=== PATIENT | female | born 1995 | race American Indian/Alaskan Native ===

== ENCOUNTER 2019-02-08 19:39 | Emergency (ER) | payer OTHER ==
--- NOTE | 2019-02-08 20:20 | Emergency Department Report ---
Chief Complaint: Medical Clearance Stated Complaint: REPEAT BETA QUANT CHECK Time Seen by Provider: 02/08/19 20:16 - HPI History of Present Illness: This is a 23 y.o. female that presents to the ER for repeat hCG to r/o miscarriage. Patient seen in this ER 02/05/19. Admits to vaginal cramping and vaginal discharge. Denies abdominal pain or vaginal bleeding. - Exam Vital Signs: Vital Signs 02/08/19 19:57 Temperature 98.8 F Pulse Rate 82 Respiratory 16 Rate Blood Pressure 136/76 [Right] O2 Sat by Pulse 100 Oximetry MSE screening note: Focused history and physical exam performed. Due to findings the following was ordered: labs ED Disposition for MSE Condition: Stable
--- NOTE | 2019-02-08 22:42 | Emergency Department Report ---
ED Female HPI - General Chief complaint: Urogenital-Female Stated complaint: REPEAT BETA QUANT CHECK Time Seen by Provider: 02/08/19 20:16 Source: patient Mode of arrival: Ambulatory Limitations: No Limitations - History of Present Illness Initial comments: 23-year-old -[place] female comes to the emergency room for repeat hCG on a taper. Patient was seen here on 02/05/2019 and was diagnosed with a threatened miscarriage. Patient at that time came in with pelvic cramping and vaginal spotting. Patient had an ultrasound that showed a single intrauterine gestation with pole was not appreciated. Her hCG at that time was about 6000. She was instructed to return back in 2 days. Patient reports she is still having mild vaginal cramping but denies any vaginal bleeding. She reports she has an appointment on 03/01/2019 with my OB. Complaint: pelvic pain Radiation: non-radiating Severity: mild Severity scale (0 -10): 2 Quality: cramping Consistency: intermittent Worsens with: none Are you Now?: Yes - Related Data Allergies Allergy/AdvReac Type Severity Reaction Status Date / Time No Known Allergies Allergy Unverified 02/05/19 11:00 ED Review of Systems ROS: Stated complaint: REPEAT BETA QUANT CHECK Other details as noted in HPI Comment: All other systems reviewed and negative ED Past Medical Hx - Past Medical History Previous Medical History?: Yes Additional medical history: HPV - Surgical History Past Surgical History?: No - Social History Smoking Status: Never Smoker Substance Use Type: None ED Physical Exam - General Limitations: No Limitations General appearance: alert, in no apparent distress - Head Head exam: Present: atraumatic, normocephalic - Eye Eye exam: Present: normal appearance - ENT ENT exam: Present: mucous membranes moist - Neurological Exam Neurological exam: Present: alert, oriented X3 - Psychiatric Psychiatric exam: Present: normal affect, normal mood - Skin Skin exam: Present: warm, dry, intact, normal color. Absent: rash ED Course Vital Signs 02/08/19 02/08/19 19:57 20:16 Temperature 98.8 F 98.8 F Pulse Rate 82 82 Respiratory 16 16 Rate Blood Pressure 136/76 Blood Pressure 136/76 [Right] O2 Sat by Pulse 100 100 Oximetry ED Medical Decision Making - Radiology Data Radiology results: report reviewed Patient: GOPI RAMIRES MR#: [id number] : 1995 Acct:[id number] Age/Sex: 23 / F ADM Date: 02/08/19 Loc: ED Attending Dr: Ordering Physician: EV MORA Date of Service: 02/08/19 Procedure(s): US OB transvaginal Accession Number(s): [id number] cc: EV MORA PROCEDURE: US OB <= 14 WEEKS FETUS TECHNIQUE: Real-time transabdominal and transvaginal sonography of the uterus, placenta, amniotic fluid, adnexa, and fetus was performed with image documentation. Measurements were obtained to determine age/size. M-mode Doppler was used to document heartbeat. ADDITIONAL GESTATION: None. HISTORY: pelvic cramping with COMPARISONS: None . FINDINGS: CRL: 2.4 mm, which corresponds to a gestational age of: 5 weeks, 6 days. Yolk Sac: Appropriate for gestational age. . Embryonic Cardiac Activity: 89 bpm . Gestational Sac: Size and shape are appropriate for gestational age Amniotic fluid: Appropriate for gestational age. Cervix: Normal. Right Ovary: Normal . Left Ovary: There is a 2 cm dominant cyst on the left ovary . Estimated delivery date: 10/05/2019 . Uterus and adnexa: Normal. IMPRESSION: Single live intrauterine gestation at approximately 5 weeks 6 days . EDC by US 10/05/2019 . This document is electronically signed by Jacque Pike DO., February 08 2019 11:42:20 PM ET Transcribed By: [facility] Dictated By: JACQUE PIKE MD Electronically Authenticated By: JACQUE PIKE MD Signed Date/Time: 02/08/192343 DD/ 30 TD/TT: 02/08/19 233 - Medical Decision Making Patient has been evaluated by this provider in [facility]. Patient hCG quantitative has more than doubled since her last visit on 02/05/19. OB ultrasound shows a single intrauterine gestation at is 5 weeks 6 days. Concerned that embryonic cardiac activity is only 89 bpm. Discussed the patient she needs to follow up with her [employer] provider in the next week. Patient is instructed to continue with her vitamins Tylenol for pain only. Critical care attestation.: If time is entered above; I have spent that time in minutes in the direct care of this critically ill patient, excluding procedure time. ED Disposition Clinical Impression: Threatened miscarriage Disposition: DC-01 TO HOME OR SELFCARE Is pt being admited?: No Does the pt Need Aspirin: No Condition: Stable Additional Instructions: Follow-up with an [facility] provider in one week. Continue with vitamins increase her water intake and Tylenol only for pain. Referrals: ANDREW VELASCO MD [Primary Care Provider] - 3-5 Days [facility] [Provider Group] - 3-5 Days Forms: Work/School Release Form(ED), Accompanied Note
--- NOTE | 2019-02-08 23:43 | Ultrasound Report ---
PROCEDURE: US OB <= 14 WEEKS FETUS TECHNIQUE: Real-time transabdominal and transvaginal sonography of the uterus, placenta, amniotic fl uid, adnexa, and fetus was performed with image documentation. Measurements were obtained to determin e age/size. M-mode Doppler was used to document heartbeat. ADDITIONAL GESTATION: None. HISTORY: pelvic cramping with COMPARISONS: None . FINDINGS: CRL: 2.4 mm, which corresponds to a gestational age of: 5 weeks, 6 days. Yolk Sac: Appropriate for gestational age. . Embryonic Cardiac Activity: 89 bpm . Gestational Sac: Size and shape are appropriate for gestational age Amniotic fluid: Appropriate for gestational age. Cervix: Normal. Right Ovary: Normal . Left Ovary: There is a 2 cm dominant cyst on the left ovary . Estimated delivery date: 10/05/2019 . Uterus and adnexa: Normal. IMPRESSION: Single live intrauterine gestation at approximately 5 weeks 6 days . EDC by US 10/05/20 19 . This document is electronically signed by Jacque Pike DO., February 08 2019 11:41:53 PM ET
[2019-02-09 00:45] VITALS: BP 130/85
== END 2019-02-09 00:30 | disposition home or self-care (01) ==
LOC: ED 19:39
DX: O20.0 Threatened abortion (principal); Z3A.01 Less than 8 weeks gestation of pregnancy
CPT/HCPCS: 36415; 76801; 76817; 84702

== ENCOUNTER 2019-05-11 15:08 | Emergency (ER) | payer OTHER, MEDICAID ==
[2019-05-11 15:33] VITALS: BP 110/61
--- NOTE | 2019-05-11 15:36 | Emergency Department Report ---
Blank Doc - Documentation Documentation: 23 yo presents at about 18 weeks preg cc of abd pain x thursday getting wors e, cc of vaginal d/c,nausea ua,quant, acc
[2019-05-11 16:02] LABS: Basophils % (Auto) 0.3 % (0.0-1.8); Eosinophils % (Auto) 0.2 % (0.0-4.3); Hemoglobin 9.8 gm/dl (10.1-14.3); Lymphocytes # (Auto) 1.8 K/mm3 (1.2-5.4); Lymphocytes % (Auto) 25.9 % (13.4-35.0); Mean Corpuscular HGB Conc 33 % (30-34); Mean Corpuscular Volume 79 fl (79-97); Monocytes # (Auto) 0.4 K/mm3 (0.0-0.8); Monocytes % (Auto) 5.7 % (0.0-7.3); Platelet Count 341 K/mm3 (140-440); Red Cell Distribution Width 19.3 % (13.2-15.2)
[2019-05-11 16:22] LABS: BUN/Creatinine Ratio 10; Blood Urea Nitrogen 5 mg/dL (7-17); Calcium 8.5 mg/dL (8.4-10.2); Hemolysis Index 91
[2019-05-11 16:46] LABS: Bacteria,Urine 1+ /HPF (Negative); Bilirubin,Urine NEG (Negative); Blood,Urine NEG (Negative); Color,Urine Yellow (Yellow); Mucus,Urine 1+ /HPF; Protein,Urine <15 mg/dL mg/dL (Negative)
[2019-05-11] MEDS ORDERED: TYLENOL PO ONE (17:52)
--- NOTE | 2019-05-11 17:54 | Emergency Department Report ---
ED HPI - General Chief complaint: Abdominal Pain Stated complaint: ABDOMINAL CRAMPING Time Seen by Provider: 05/11/19 15:31 Source: patient Mode of arrival: Ambulatory Limitations: No Limitations - History of Present Illness Initial comments: This is a 23-year-old female nontoxic, well nourished in appearance, no acute signs of distress presents to the ED with c/o of intermittent pelvic cramping x weeks. Patient denies any vaginal bleeding. Stated is about 18 weeks and does follow-up with OBGYN. Patient denies any abdominal pain. Patient denies any vaginal discharge or foul odor. Patient denies any nausea, vomiting, chest pain, shortness of breathe, fever, chills, headache, stiff neck, numbness, tingling. Patient denies any urinary symptoms. Patient denies any allergies or PMH. -: week(s) Location: pelvis Radiation: none Severity: mild Severity scale (0 -10): 3 Quality: cramping Consistency: intermittent Improves with: none Worsens with: none Associated symptoms: denies other symptoms. denies: nausea/vomiting, vaginal bleeding, vaginal discharge, abdominal pain, dysuria, headache, vision changes, malaise, dysparuenia, rash, seizure, shortness of breath, syncope, weakness Vaginal bleeding: none :: Yes Number of weeks : 18 Pre-rory care: followed by OB - Related Data Previous Rx's Medication Instructions Recorded Last Taken Type Acetaminophen 325 mg PO Q8H PRN #20 capsule 05/11/19 Unknown Rx Allergies Allergy/AdvReac Type Severity Reaction Status Date / Time No Known Allergies Allergy Unverified 02/05/19 11:00 ED Review of Systems ROS: Stated complaint: ABDOMINAL CRAMPING Other details as noted in HPI Constitutional: denies: chills, fever Eyes: denies: eye pain, eye discharge, vision change ENT: denies: ear pain, throat pain Respiratory: denies: cough, shortness of breath, wheezing Cardiovascular: denies: chest pain, palpitations Endocrine: no symptoms reported Gastrointestinal: other (pelvic pain). denies: abdominal pain, nausea, diarrhea Genitourinary: denies: urgency, dysuria, discharge Musculoskeletal: denies: back pain, joint swelling, arthralgia Skin: denies: rash, lesions Neurological: denies: headache, weakness, paresthesias Psychiatric: denies: anxiety, depression Hematological/Lymphatic: denies: easy bleeding, easy bruising ED Past Medical Hx - Past Medical History Previous Medical History?: No Additional medical history: HPV - Surgical History Past Surgical History?: No - Social History Smoking Status: Never Smoker Substance Use Type: None - Medications Home Medications: Home Medications Medication Instructions Recorded Confirmed Last Taken Type Acetaminophen 325 mg PO Q8H PRN #20 capsule 05/11/19 Unknown Rx ED Physical Exam - General Limitations: No Limitations General appearance: alert, in no apparent distress - Head Head exam: Present: atraumatic, normocephalic - Eye Eye exam: Present: normal appearance - Neck Neck exam: Present: normal inspection, full ROM. Absent: tenderness, meni ngismus, lymphadenopathy - Respiratory Respiratory exam: Present: normal lung sounds bilaterally. Absent: respiratory distress, wheezes, rales, rhonchi, stridor, chest wall tenderness, accessory muscle use, decreased breath sounds, prolonged expiratory - Cardiovascular Cardiovascular Exam: Present: regular rate, normal rhythm, normal heart sounds. Absent: bradycardia, tachycardia, irregular rhythm, systolic murmur, diastolic murmur, rubs, gallop - GI/Abdominal GI/Abdominal exam: Present: soft, normal bowel sounds. Absent: distended, tenderness, guarding, rebound, rigid, diminished bowel sounds - Extremities Exam Extremities exam: Present: normal inspection, full ROM - Back Exam Back exam: Present: normal inspection, full ROM. Absent: tenderness, CVA tenderness (R), CVA tenderness (L), muscle spasm, paraspinal tenderness, vertebral tenderness, rash noted - Neurological Exam Neurological exam: Present: alert, oriented X3, normal gait - Psychiatric Psychiatric exam: Present: normal affect, normal mood - Skin Skin exam: Present: warm, dry, intact, normal color. Absent: rash ED Course Vital Signs 05/11/19 05/11/19 15:31 18:57 Temperature 98.5 F Pulse Rate 78 Respiratory 16 20 Rate Blood Pressure 110/61 O2 Sat by Pulse 99 Oximetry - Reevaluation(s) Reevaluation #1: 05/11/19 17:54 Patient is speaking in full sentences with no signs of distress noted. ED Medical Decision Making - Lab Data Result diagrams: 05/11/19 15:46 05/11/19 15:46 - Medical Decision Making This is a 23-year-old female that presents with pelvic pain. Patient is stable and was examined by me. There is no abdominal tenderness. Negative signs of symptoms of appendicitis. Labs obtained. UA obtained. OB US of abdomen obtained and dictated by the radiologist. Patient is notified of the report with no questions noted by the patient. Vital signs are stable prior to discharge. Patient received medical treatment in the ED which patient stated symptoms has resovled and subsided. Patient was also instructed to Follow-up with a OBGYN doctor in 3-5 days or if symptoms worsen and continue return to emergency room as soon as possible. At time of discharge, the patient does not seem toxic or ill in appearance. No acute signs of distress noted. Patient agrees to discharge treatment plan of care. No further questions noted by the patient. Critical care attestation.: If time is entered above; I have spent that time in minutes in the direct care of this critically ill patient, excluding procedure time. ED Disposition Clinical Impression: related pelvic pain, antepartum Disposition: TO HOME OR SELFCARE Is pt being admited?: No Does the pt Need Aspirin: No Condition: Stable Instructions: (ED) Additional Instructions: Follow-up with a OBGYN doctor in 3-5 days or if symptoms worsen and continue return to emergency room as soon as possible. Prescriptions: Acetaminophen 325 mg PO Q8H PRN #20 capsule PRN Reason: Pain, Moderate (4-6) Referrals: [facility] MD SASHA [Primary Care Provider] - 3-5 Days PRIMARY CAREMD [Referring] - 3-5 Days JUANCARLOS GHOTRA MD [Staff Physician] - 3-5 Days [facility] [Provider Group] - 3-5 Days Forms: Work/School Release Form(ED)
--- NOTE | 2019-05-11 19:34 | Ultrasound Report ---
PROCEDURE: US OB >= 14 WEEKS FETUS TECHNIQUE: Ultrasound obstetrical transabdominal HISTORY: pelvic mike COMPARISONS: Correlated with prior exam of February 08, 2019 FINDINGS: Single live intrauterine gestation present in cephalic position. Placenta is anterior and grade 0 cardiac activity present heart rate 1 61 bpm Cervical length 6.0 cm Following structures were seen and appear grossly unremarkable, choroid plexus and cisterna mag na, cerebellum, lateral ventricles, kidneys, urinary bladder, diaphragm, four-chamber view of the hea rt, three-vessel cord and cord insert, visualized portion of the spine biometric measurements were obtained Biparietal diameter 17 weeks 5 days Head circumference 18 weeks 0 days Abdominal circumference 19 weeks 1 day. Femur length 18 weeks 5 days Based on today's exam estimated weight is 259 g, 1 lb. 9 oz. Composite gestational age based on today's exam is 18 weeks 3 days with estimated delivery September 172018 IMPRESSION: Single live intrauterine gestation demonstrating adequate interval growth. This document is electronically signed by Janes Melgoza MD., May 11 2019 07:32:41 PM ET
== END 2019-05-11 20:35 | disposition home or self-care (01) ==
LOC: ED 15:08
DX: O26.892 Other specified pregnancy related conditions, second trimester (principal); R10.2 Pelvic and perineal pain; Z3A.18 18 weeks gestation of pregnancy
CPT/HCPCS: 36415; 76805; 80048; 81001; 84702; 85025; 99284

== ENCOUNTER 2019-10-02 02:42 | Outpatient (CLI) | payer OTHER, MEDICAID ==
[2019-10-02 05:25] VITALS: BP 119/84
== END 2019-10-02 05:03 | disposition home or self-care (01) ==
LOC: TRG 02:42
PROVIDERS: ATTEND Obstetrics & Gynecology
DX: O47.1 False labor at or after 37 completed weeks of gestation (principal); Z3A.39 39 weeks gestation of pregnancy
CPT/HCPCS: 59025; Q0177

== ENCOUNTER 2019-10-02 10:08 | Inpatient (IN) | payer OTHER, MEDICAID ==
--- NOTE | 2019-10-02 11:19 | History and Physical Report ---
History of Present Illness Date of examination: 10/02/19 Date of admission: Contractions History of present illness: Past History : 1 Term Births: 0 Premature Births: 0 Living Children: 0 Para: 0 Mult. Births: 0 Prev : 0 Prev. attempt? 0 Aborta: 0 Elect. Ab: 0 Spont. Ab: 0 Ectopics: 0 Past Medical History: Abnormal Pap Smear - ASCUS + HRHPV 11/2018 Past Surgical History: Reviewed history from 11/26/2018 and no changes required: negative Past Medical History Abnormal PAP: positive, 11/2018 - ASCUS HRHPV Social Hx: Patient is single Smoking History: Patient has never smoked. [employer] NO TOBACCO/NO DRUGS +ETOH Infection History Hx of STD: HPV HIV Risk Eval: low risk Hepatitis B Risk Eval: low risk Personal hx. of genital herpes: no Partner hx. of genital herpes: no Rash, Viral, or Febrile illness since last LMP? no Varicella/Chicken Pox Status: Immunized Genetic History Congenital Heart Defect: Mom: no Dad: no Epi Disease: Mom: no Dad: no Thalassemia Mom: no Dad: no Neural Tube Defect Mom: no Dad: no Down's Syndrome Mom: no Dad: no Antonio-Sachs Mom: no Dad: no Sickle Cell Disease/Trait Mom: no Dad: no Hemophilia Mom: no Dad: no Muscular Dystrophy Mom: no Dad: no Cystic Fibrosis Mom: no Dad: no Leana Chorea Mom: no Dad: no Mental Retardation Mom: no Dad: no Fragile X Mom: no Dad: no Other Genetic/Chromosomal Disorder Mom: no Dad: no Child w/other defect Mom: no Dad: no Enviromental Exposures Xray Exposure: no Medication, drug, or alcohol use since LMP: no Chemical/Other Exposure: no Exposure to Cat Liter: no Hx of Parvovirus (Fifth Disease): no Occupational Exposure to Children: none Active Medications (reviewed today): LO LOESTRIN 1/10 (NORETHIN ERNESOT-ETH ESTRAD-FE TABS) () 1 po qd Current Allergies (reviewed today): * LATEX (Critical) Past History Family/Genetic History: anesthesia problems - Obstetrical History Expected Date of Delivery: 10/06/19 Actual Gestation: 39 Week(s) 3 Day(s) : 1 Medications and Allergies Allergies Allergy/AdvReac Type Severity Reaction Status Date / Time No Known Allergies Allergy Verified 10/02/19 03:19 Home Medications Medication Instructions Recorded Confirmed Last Taken Type Vit-Fe Fumar-FA [ 1 tab PO QDAY 10/02/19 10/02/19 1 Day Ago History Vitamin] ~10/01/19 Review of Systems All systems: negative Genitourinary: contractions - Vital Signs Vital signs: Vital Signs Pulse BP 129 H 121/69 10/02/19 10:32 10/02/19 10:32 Temp Pulse Resp BP Pulse Ox 98.2 F 115 H 16 121/69 99 10/02/19 11:06 10/02/19 11:06 10/02/19 11:06 10/02/19 11:06 10/02/19 10:58 - Physical Exam Breasts: Positive: deferred Lungs: Positive: Normal air movement Abdomen: Positive: soft. Negative: tenderness Genitourinary (Female): Positive: normal external genitalia, normal perenium Vulva: both: normal Uterus: Positive: enlarged. Negative: tender Extremities: Positive: normal. Negative: edema - Obstetrical FHR: category 1 Uterine Contraction Monitor Mode: External Cervical Dilatation: 5 Cervical Effacement Percentage: 70 station: -1; soft, mid Uterine Contraction Pattern: Irregular Results All other labs normal. Assessment and Plan - Patient Problems (1) 39 weeks gestation of Current Visit: Yes Status: Acute Plan to address problem: Anticipate vaginal delivery (2) Active labor at term Current Visit: Yes Status: Acute
[2019-10-02] MEDS ORDERED: LIDOCAINE (2%) 20 MG/1 ML VIAL 20 ML MDV INFILTRATI ONE ×2 (11:29→18:49)
[2019-10-02] MEDS ORDERED: ONDANSETRON 4 MG/2 ML INJ IV PRN (11:29)
[2019-10-02] MEDS ORDERED: TERBUTALINE 1 MG/1 ML INJ IVP PRN (11:29)
[2019-10-02] MEDS ORDERED: BUTORPHANOL 2 MG/1 ML INJ IV PRN (11:29)
[2019-10-02] MEDS ORDERED: ePHEDrine SULFATE 50 MG/1 ML INJ IV PRN ×2 (11:29→14:32)
[2019-10-02] MEDS ORDERED: MINERAL OIL 30 ML ORAL LIQD PO PRN (11:29)
[2019-10-02] MEDS ORDERED: TERBUTALINE 1 MG/1 ML INJ SUB-Q PRN (11:29)
[2019-10-02] MEDS ORDERED: OXYTOCIN 20 UNIT/1000ML DRIP 20 UNITS/1,000 ML BAG IV SCH (12:00)
[2019-10-02 13:00] LABS: Hemoglobin 9.5 gm/dl (10.1-14.3); Mean Corpuscular HGB Conc 32 % (30-34); Platelet Count 315 K/mm3 (140-440); Red Cell Distribution Width 18.1 % (13.2-15.2)
[2019-10-02] MEDS: LACTATED RINGERS 1,000 ML IV SCH ×2 (13:01→13:44)
[2019-10-02 13:03] LABS: Mean Corpuscular Volume 70 fl (79-97)
[2019-10-02] MEDS ORDERED: BUPIVACAINE/PF (0.25%) 2.5 MG/ML 10 ML VIAL INFILTRATI ONE (14:04)
[2019-10-02] MEDS ORDERED: fentaNYL 100 MCG/2 ML INJ ONE (14:04)
--- NOTE | 2019-10-02 14:31 | Anesthesia Consultation ---
Anesthesia Consult and Med Hx Date of service: 10/02/19 - Airway Anesthetic Teeth Evaluation: Good ROM Head & Neck: Adequate Mental/Hyoid Distance: Adequate Mallampati Class: Class II Intubation Access Assessment: Good - Pulmonary Exam CTA: Yes - Cardiac Exam Cardiac Exam: RRR - Pre-Operative Health Status ASA Pre-Surgery Classification: ASA2, Emergency Proposed Anesthetic Plan: Epidural - Pulmonary Hx Asthma: No - Cardiovascular System Hx Hypertension: No - Central Nervous System Hx Seizures: No Hx Psychiatric Problems: No - Endocrine Hx Renal Disease: No Hx Hypothyroidism: No Hx Hyperthyroidism: No - Hematic Hx Anemia: No Hx Sickle Cell Disease: No - Other Systems Hx Alcohol Use: No
[2019-10-02] MEDS ORDERED: NALOXONE 2 MG/2 ML INJ IV PRN (14:32)
[2019-10-02] MEDS ORDERED: OXYTOCIN DRIP 30 UNITS/500 ML BAG IV SCH (15:00)
[2019-10-02] MEDS ORDERED: fentaNYL-BUPIV 2 MCG/ML-0.125% 200 MCG/100 ML BAG EPIDURAL SCH (15:00)
--- NOTE | 2019-10-02 15:37 | Progress Note ---
Assessment and Plan Continue anticipatory care - Patient Problems (1) 39 weeks gestation of Current Visit: Yes Status: Acute (2) Active labor at term Current Visit: Yes Status: Acute Subjective - Subjective Date of service: 10/02/19 Principal diagnosis: IUP@39 weeks, labor Interval history: Past History : 1 Term Births: 0 Premature Births: 0 Living Children: 0 Para: 0 Mult. Births: 0 Prev : 0 Prev. attempt? 0 Aborta: 0 Elect. Ab: 0 Spont. Ab: 0 Ectopics: 0 Past Medical History: Abnormal Pap Smear - ASCUS + HRHPV 11/2018 Past Surgical History: Reviewed history from 11/26/2018 and no changes required: negative Past Medical History Abnormal PAP: positive, 11/2018 - ASCUS HRHPV Social Hx: Patient is single Smoking History: Patient has never smoked. PNP NO TOBACCO/NO DRUGS +ETOH Infection History Hx of STD: HPV HIV Risk Eval: low risk Hepatitis B Risk Eval: low risk Personal hx. of genital herpes: no Partner hx. of genital herpes: no Rash, Viral, or Febrile illness since last LMP? no Varicella/Chicken Pox Status: Immunized Genetic History Congenital Heart Defect: Mom: no Dad: no Epi Disease: Mom: no Dad: no Thalassemia Mom: no Dad: no Neural Tube Defect Mom: no Dad: no Down's Syndrome Mom: no Dad: no Antonio-Sachs Mom: no Dad: no Sickle Cell Disease/Trait Mom: no Dad: no Hemophilia Mom: no Dad: no Muscular Dystrophy Mom: no Dad: no Cystic Fibrosis Mom: no Dad: no [place] Chorea Mom: no Dad: no Mental Retardation Mom: no Dad: no Fragile X Mom: no Dad: no Other Genetic/Chromosomal Disorder Mom: no Dad: no Child w/other defect Mom: no Dad: no Enviromental Exposures Xray Exposure: no Medication, drug, or alcohol use since LMP: no Chemical/Other Exposure: no Exposure to Cat Liter: no Hx of Parvovirus (Fifth Disease): no Occupational Exposure to Children: none Active Medications (reviewed today): LO LOESTRIN 1/10 (NORETHIN ERNESTO-ETH ESTRAD-FE TABS) () 1 po qd Current Allergies (reviewed today): * LATEX (Critical) Patient reports: no new complaints Objective - Vital Signs Vital Signs: Vital Signs - 12hr 11/17/19 11/17/19 11/17/19 10:32 10:33 10:38 Temperature Pulse Rate 129 H 21 L 128 H Respiratory Rate Blood Pressure 121/69 Blood Pressure [Left] O2 Sat by Pulse 100 100 Oximetry 10/02/19 10/02/19 10/02/19 10:43 10:48 10:53 Temperature Pulse Rate 98 H 108 H 110 H Respiratory Rate Blood Pressure Blood Pressure [Left] O2 Sat by Pulse 100 100 100 Oximetry 10/02/19 10/02/19 10/02/19 10:58 11:06 11:14 Temperature 98.2 F Pulse Rate 111 H 115 H 121 H Respiratory 16 Rate Blood Pressure Blood Pressure 121/69 [Left] O2 Sat by Pulse 99 99 Oximetry 10/02/19 10/02/19 10/02/19 12:48 13:01 14:11 Temperature Pulse Rate 106 H 95 H 46 L Respiratory Rate Blood Pressure 187/94 121/63 Blood Pressure [Left] O2 Sat by Pulse 87 Oximetry 10/02/19 10/02/19 10/02/19 14:12 14:17 14:21 Temperature Pulse Rate 120 H 114 H 114 H Respiratory Rate Blood Pressure 151/108 139/75 Blood Pressure [Left] O2 Sat by Pulse 98 94 Oximetry 10/02/19 10/02/19 10/02/19 14:22 14:23 14:25 Temperature Pulse Rate 133 H 127 H 120 H Respiratory Rate Blood Pressure 110/71 105/71 Blood Pressure [Left] O2 Sat by Pulse 99 Oximetry 10/02/19 10/02/19 10/02/19 14:26 14:27 14:29 Temperature Pulse Rate 129 H 124 H 141 H Respiratory Rate Blood Pressure 100/65 95/60 Blood Pressure [Left] O2 Sat by Pulse 98 Oximetry 10/02/19 10/02/19 10/02/19 14:31 14:32 14:33 Temperature Pulse Rate 100 H 110 H 102 H Respiratory Rate Blood Pressure 97/53 94/52 Blood Pressure [Left] O2 Sat by Pulse 99 Oximetry 10/02/19 10/02/19 10/02/19 14:34 14:37 14:38 Temperature Pulse Rate 96 H 118 H 126 H Respiratory Rate Blood Pressure 96/54 104/55 100/52 Blood Pressure [Left] O2 Sat by Pulse 98 Oximetry 10/02/19 10/02/19 10/02/19 14:41 14:42 14:45 Temperature Pulse Rate 115 H 101 H 129 H Respiratory Rate Blood Pressure 89/54 93/54 97/55 Blood Pressure [Left] O2 Sat by Pulse 99 Oximetry 10/02/19 10/02/19 10/02/19 14:47 14:49 14:50 Temperature Pulse Rate 85 104 H 118 H Respiratory Rate Blood Pressure 103/60 94/51 97/55 Blood Pressure [Left] O2 Sat by Pulse 98 Oximetry 10/02/19 10/02/19 10/02/19 14:52 14:57 14:59 Temperature Pulse Rate 88 100 H 123 H Respiratory Rate Blood Pressure 100/52 96/51 Blood Pressure [Left] O2 Sat by Pulse 99 99 Oximetry 10/02/19 10/02/19 10/02/19 15:00 15:02 15:03 Temperature Pulse Rate 122 H 71 75 Respiratory Rate Blood Pressure 102/59 116/57 Blood Pressure [Left] O2 Sat by Pulse 100 Oximetry 10/02/19 10/02/19 10/02/19 15:04 15:07 15:11 Temperature Pulse Rate 101 H 76 88 Respiratory Rate Blood Pressure 115/73 Blood Pressure [Left] O2 Sat by Pulse 85 100 Oximetry 10/02/19 10/02/19 10/02/19 15:12 15:13 15:15 Temperature Pulse Rate 84 84 82 Respiratory Rate Blood Pressure 104/53 107/54 Blood Pressure [Left] O2 Sat by Pulse 99 Oximetry 10/02/19 10/02/19 10/02/19 15:17 15:19 15:22 Temperature Pulse Rate 91 H 83 97 H Respiratory Rate Blood Pressure 106/64 89/55 Blood Pressure [Left] O2 Sat by Pulse 100 100 Oximetry 10/02/19 10/02/19 10/02/19 15:25 15:27 15:28 Temperature Pulse Rate 87 78 75 Respiratory Rate Blood Pressure 113/57 104/55 Blood Pressure [Left] O2 Sat by Pulse 78 L 100 Oximetry 10/02/19 10/02/19 15:30 15:32 Temperature Pulse Rate 85 77 Respiratory Rate Blood Pressure Blood Pressure [Left] O2 Sat by Pulse 84 97 Oximetry - Exam Breasts: deferred Lungs: Normal air movement Abdomen: Present: soft. Absent: tenderness Vulva: both: normal Uterus: Present: fundal height above umbilicus. Absent: tenderness FHR: category 2 Uterine Contraction Monitor Mode: External (AROM scant fluid) Cervical Dilatation: 7 Cervical Effacement Percentage: 90 station: -1 Uterine Contraction Pattern: Regular Extremities: normal - Labs Labs: Abnormal Labs 10/02/19 12:35 WBC 13.1 H Hgb 9.5 L Hct 30.0 L MCV 70 L MCH 22 L RDW 18.1 H Laboratory Results - last 24 hr 10/02/19 10/02/19 10/02/19 12:35 12:35 12:35 WBC 13.1 H RBC 4.30 Hgb 9.5 L Hct 30.0 L MCV 70 L MCH 22 L MCHC 32 RDW 18.1 H Plt Count 315 Syphilis IgG Antibody Non-reactive Blood Type A POSITIVE Antibody Screen Negative
--- NOTE | 2019-10-02 16:01 | Progress Note ---
Assessment and Plan observe closely may need pitocin - Patient Problems (1) 39 weeks gestation of Current Visit: Yes Status: Acute (2) Active labor at term Current Visit: Yes Status: Acute Subjective - Subjective Date of service: 10/02/19 Principal diagnosis: IUP@39 weeks, labor Interval history: Past History : 1 Term Births: 0 Premature Births: 0 Living Children: 0 Para: 0 Mult. Births: 0 Prev : 0 Prev. attempt? 0 Aborta: 0 Elect. Ab: 0 Spont. Ab: 0 Ectopics: 0 Past Medical History: Abnormal Pap Smear - ASCUS + HRHPV 11/2018 Past Surgical History: Reviewed history from 11/26/2018 and no changes required: negative Past Medical History Abnormal PAP: positive, 11/2018 - ASCUS HRHPV Social Hx: Patient is single Smoking History: Patient has never smoked. [employer] NO TOBACCO/NO DRUGS +ETOH Infection History Hx of STD: HPV HIV Risk Eval: low risk Hepatitis B Risk Eval: low risk Personal hx. of genital herpes: no Partner hx. of genital herpes: no Rash, Viral, or Febrile illness since last LMP? no Varicella/Chicken Pox Status: Immunized Genetic History Congenital Heart Defect: Mom: no Dad: no Epi Disease: Mom: no Dad: no Thalassemia Mom: no Dad: no Neural Tube Defect Mom: no Dad: no Down's Syndrome Mom: no Dad: no Antonio-Sachs Mom: no Dad: no Sickle Cell Disease/Trait Mom: no Dad: no Hemophilia Mom: no Dad: no Muscular Dystrophy Mom: no Dad: no Cystic Fibrosis Mom: no Dad: no [place] Chorea Mom: no Dad: no Mental Retardation Mom: no Dad: no Fragile X Mom: no Dad: no Other Genetic/Chromosomal Disorder Mom: no Dad: no Child w/other defect Mom: no Dad: no Enviromental Exposures Xray Exposure: no Medication, drug, or alcohol use since LMP: no Chemical/Other Exposure: no Exposure to Cat Liter: no Hx of Parvovirus (Fifth Disease): no Occupational Exposure to Children: none Active Medications (reviewed today): LO LOESTRIN 1/10 (NORETHIN ERNESTO-ETH ESTRAD-FE TABS) () 1 po qd Current Allergies (reviewed today): * LATEX (Critical) Patient reports: no new complaints Objective - Vital Signs Vital Signs: Vital Signs - 12hr 10/02/19 10/02/19 10/02/19 10:32 10:33 10:38 Temperature Pulse Rate 129 H 21 L 128 H Respiratory Rate Blood Pressure 121/69 Blood Pressure [Left] O2 Sat by Pulse 100 100 Oximetry 10/02/19 10/02/19 10/02/19 10:43 10:48 10:53 Temperature Pulse Rate 98 H 108 H 110 H Respiratory Rate Blood Pressure Blood Pressure [Left] O2 Sat by Pulse 100 100 100 Oximetry 10/02/19 10/02/19 10/02/19 10:58 11:06 11:14 Temperature 98.2 F Pulse Rate 111 H 115 H 121 H Respiratory 16 Rate Blood Pressure Blood Pressure 121/69 [Left] O2 Sat by Pulse 99 99 Oximetry 10/02/19 10/02/19 10/02/19 12:48 13:01 14:11 Temperature Pulse Rate 106 H 95 H 46 L Respiratory Rate Blood Pressure 187/94 121/63 Blood Pressure [Left] O2 Sat by Pulse 87 Oximetry 10/02/19 10/02/19 10/02/19 14:12 14:17 14:21 Temperature Pulse Rate 120 H 114 H 114 H Respiratory Rate Blood Pressure 151/108 139/75 Blood Pressure [Left] O2 Sat by Pulse 98 94 Oximetry 10/02/19 10/02/19 10/02/19 14:22 14:23 14:25 Temperature Pulse Rate 133 H 127 H 120 H Respiratory Rate Blood Pressure 110/71 105/71 Blood Pressure [Left] O2 Sat by Pulse 99 Oximetry 10/02/19 10/02/19 10/02/19 14:26 14:27 14:29 Temperature Pulse Rate 129 H 124 H 141 H Respiratory Rate Blood Pressure 100/65 95/60 Blood Pressure [Left] O2 Sat by Pulse 98 Oximetry 10/02/19 10/02/19 10/02/19 14:31 14:32 14:33 Temperature Pulse Rate 100 H 110 H 102 H Respiratory Rate Blood Pressure 97/53 94/52 Blood Pressure [Left] O2 Sat by Pulse 99 Oximetry 10/02/19 10/02/19 10/02/19 14:34 14:37 14:38 Temperature Pulse Rate 96 H 118 H 126 H Respiratory Rate Blood Pressure 96/54 104/55 100/52 Blood Pressure [Left] O2 Sat by Pulse 98 Oximetry 10/02/19 10/02/19 10/02/19 14:41 14:42 14:45 Temperature Pulse Rate 115 H 101 H 129 H Respiratory Rate Blood Pressure 89/54 93/54 97/55 Blood Pressure [Left] O2 Sat by Pulse 99 Oximetry 10/02/19 10/02/19 10/02/19 14:47 14:49 14:50 Temperature Pulse Rate 85 104 H 118 H Respiratory Rate Blood Pressure 103/60 94/51 97/55 Blood Pressure [Left] O2 Sat by Pulse 98 Oximetry 10/02/19 10/02/19 10/02/19 14:52 14:57 14:59 Temperature Pulse Rate 88 100 H 123 H Respiratory Rate Blood Pressure 100/52 96/51 Blood Pressure [Left] O2 Sat by Pulse 99 99 Oximetry 10/02/19 10/02/19 10/02/19 15:00 15:02 15:03 Temperature Pulse Rate 122 H 71 75 Respiratory Rate Blood Pressure 102/59 116/57 Blood Pressure [Left] O2 Sat by Pulse 100 Oximetry 10/02/19 10/02/19 10/02/19 15:04 15:07 15:11 Temperature Pulse Rate 101 H 76 88 Respiratory Rate Blood Pressure 115/73 Blood Pressure [Left] O2 Sat by Pulse 85 100 Oximetry 10/02/19 10/02/19 10/02/19 15:12 15:13 15:15 Temperature Pulse Rate 84 84 82 Respiratory Rate Blood Pressure 104/53 107/54 Blood Pressure [Left] O2 Sat by Pulse 99 Oximetry 10/02/19 10/02/19 10/02/19 15:17 15:19 15:22 Temperature Pulse Rate 91 H 83 97 H Respiratory Rate Blood Pressure 106/64 89/55 Blood Pressure [Left] O2 Sat by Pulse 100 100 Oximetry 10/02/19 10/02/19 10/02/19 15:25 15:27 15:28 Temperature Pulse Rate 87 78 75 Respiratory Rate Blood Pressure 113/57 104/55 Blood Pressure [Left] O2 Sat by Pulse 78 L 100 Oximetry 10/02/19 10/02/19 10/02/19 15:30 15:32 15:37 Temperature Pulse Rate 85 77 91 H Respiratory Rate Blood Pressure Blood Pressure [Left] O2 Sat by Pulse 84 97 100 Oximetry 10/02/19 10/02/19 10/02/19 15:39 15:41 15:42 Temperature Pulse Rate 74 78 76 Respiratory Rate Blood Pressure 109/63 98/56 Blood Pressure [Left] O2 Sat by Pulse 98 Oximetry 10/02/19 10/02/19 10/02/19 15:47 15:52 15:57 Temperature Pulse Rate 83 98 H 78 Respiratory Rate Blood Pressure Blood Pressure [Left] O2 Sat by Pulse 100 100 100 Oximetry - Exam FHR comments: suspicious decels Cervical Dilatation: 7 Cervical Effacement Percentage: 90 station: 0 Uterine Contraction Pattern: Irregular (IUPC and ISE palced w/o difficulty) - Labs Labs: Abnormal Labs 10/02/19 12:35 WBC 13.1 H Hgb 9.5 L Hct 30.0 L MCV 70 L MCH 22 L RDW 18.1 H Laboratory Results - last 24 hr 10/02/19 10/02/19 10/02/19 12:35 12:35 12:35 WBC 13.1 H RBC 4.30 Hgb 9.5 L Hct 30.0 L MCV 70 L MCH 22 L MCHC 32 RDW 18.1 H Plt Count 315 Syphilis IgG Antibody Non-reactive Blood Type A POSITIVE Antibody Screen Negative
--- NOTE | 2019-10-02 19:41 | Procedure Note ---
OB Delivery Note - Delivery Date of Delivery: 10/02/19 Surgeon: ROSI BOWLING Estimated blood loss: 300cc - Vaginal Delivery presentation: vertex Delivery position: OA Intrapartum events: none Delivery augmentation: rupture of membranes Delivery monitor: external FHT, external uterine, internal FHT, internal uterine Route of delivery: Delivery placenta: spontaneous (intacat) Episiotomy: none Delivery laceration: 2nd degree Delivery repair: vicryl (2-0 vicryl, usual fashion) Anesthesia: local, epidural - A at 1 minute: 8 at 5 minutes: 8 Infant Gender: Female (6lbs 11oz)
[2019-10-03] MEDS ORDERED: IBUPROFEN 800 MG TAB PO PRN (04:14)
--- NOTE | 2019-10-03 08:25 | Discharge Summary ---
Providers - Providers Date of Admission: 10/02/19 11:26 Date of discharge: 10/03/19 (pt agrees with d/c) Attending physician: ROSI BOWLING Primary care physician: ROSI BOWLING Hospitalization Reason for admission: active labor Delivery: Episiotomy: none Laceration: 2nd degree Incision: normal, dry, intact Other procedures: none complications: none Discharge diagnosis: IUP at term delivered [place] baby: female Hospital course: uncomplicated vaginal delivery OOB for AM care VSS FF below umb Lochia small Perineum slight swelling intact H&H pending No s/sx of anemia Doing well s/p vag delivery. P: d/c today with instructions RTO 4 weeks Condition at discharge: Good Disposition: DC-01 TO HOME OR SELFCARE - Discharge Diagnoses (1) Normal spontaneous vaginal delivery Status: Acute Comment: RTO 4 weeks PP care Plan - Discharge Medications Prescriptions: Ibuprofen [Motrin 800 MG tab] 800 mg PO TID PRN #30 tablet PRN Reason: Pain - Provider Discharge Summary Activity: routine, no sex for 6 weeks, no heavy lifting 4 weeks, no strenuous exercise Diet: routine Instructions: routine Additional instructions: [] Smoking cessation referral if applicable(refer to patient education folder for contact #) [] Refer to [facility]'s [facility] [address] Booklet Call your doctor immediately for: * Fever > 100.5 * Heavy vaginal bleeding ( >1 pad per hour) * Severe persistent headache * Shortness of breath * Reddened, hot, painful area to leg or breast * Drainage or odor from incision. * Keep incision clean and dry at all times and follow doctor's instructions regarding bathing/showering - Follow up plan Follow up: ROSI BOWLING MD [Primary Care Provider] - 11/01/19 (Congratulations! Please call [phone] to schedule your visit in 4 weeks Take medications as prescribed. Call with concerns.)
[2019-10-03] MEDS ORDERED: WITCH HAZEL/ GLYCERIN PAD TP PRN (09:30)
[2019-10-03] MEDS ORDERED: PROMETHAZINE 25 MG TAB PO PRN (09:30)
[2019-10-03] MEDS ORDERED: diphenhydrAMINE 25 MG CAP PO PRN (09:30)
[2019-10-03] MEDS ORDERED: ACETAMINOPHEN 325 MG TAB PO PRN (09:30)
[2019-10-03] MEDS ORDERED: LANOLIN/ZINC/DIMETHICONE (LANSINOH) 7 GM TP PRN (09:30)
[2019-10-03] MEDS ORDERED: ONDANSETRON 4 MG/2 ML INJ IV PRN (09:30)
[2019-10-03] MEDS ORDERED: PROMETHAZINE 25 MG RECT SUPP PR PRN (09:30)
[2019-10-03] MEDS: IBUPROFEN 600 MG TAB PO SCH (13:22)
[2019-10-03 20:25] LABS: Hematocrit 21.9 % (30.3-42.9); Hemoglobin 6.7 gm/dl (10.1-14.3)
[2019-10-03] MEDS ORDERED: MAGNESIUM HYDROXIDE (MOM) ORAL LIQD UDC PO PRN (22:00)
[2019-10-03 22:46] LABS: Hematocrit 21.3 % (30.3-42.9); Hemoglobin 6.5 gm/dl (10.1-14.3)
[2019-10-04] MEDS: IBUPROFEN 600 MG TAB PO SCH ×3 (00:04→12:10)
[2019-10-04] MEDS ORDERED: TETANUS,DIPH,PERTUSS(ACELL) VACCINE 0.5 ML SYRINGE IM ONE (06:00)
[2019-10-04] MEDS ORDERED: FERROUS SULFATE 325 MG TAB PO SCH (10:00)
[2019-10-04] MEDS ORDERED: FLU VACC QUAD 2019-20 (3 YR UP)/PF 60 MCG/0.5 ML SYRINGE IM ONE (14:00)
[2019-10-04 17:58] VITALS: BP 109/61
== END 2019-10-04 17:15 | disposition home or self-care (01) | DRG 807 ==
LOC: TRG 10:08 → LD 11:26 → OB 21:37
PROVIDERS: ADMIT Obstetrics & Gynecology; ATTEND Obstetrics & Gynecology
PROC: 10E0XZZ Delivery of Products of Conception, External Approach (ICD-10-PCS; principal; 2019-10-02)
PROC: 0KQM0ZZ Repair Perineum Muscle, Open Approach (ICD-10-PCS; 2019-10-02)
PROC: 10H07YZ Insertion of Other Device into Products of Conception, Via Natural or Artificial Opening (ICD-10-PCS; 2019-10-02)
PROC: 3E0R3BZ Introduction of Anesthetic Agent into Spinal Canal, Percutaneous Approach (ICD-10-PCS; 2019-10-02)
PROC: 00HU33Z Insertion of Infusion Device into Spinal Canal, Percutaneous Approach (ICD-10-PCS; 2019-10-02)
PROC: 3E0234Z Introduction of Serum, Toxoid and Vaccine into Muscle, Percutaneous Approach (ICD-10-PCS; 2019-10-04)
DX: O99.02 Anemia complicating childbirth (principal); Z37.0 Single live birth; D64.9 Anemia, unspecified; O70.1 Second degree perineal laceration during delivery; Z3A.39 39 weeks gestation of pregnancy; Z23 Encounter for immunization
CPT/HCPCS: 36415; 59025; 85014; 85018; 85027; 86592; 86850; 86900; 86901; 90686; G0378; A6250; J2590; J3010; J7120; Q0177